=== PATIENT | male | born 1985 | race American Indian/Alaskan Native ===

== ENCOUNTER 2018-05-28 19:37 | Emergency (ER) | payer OTHER ==
--- NOTE | 2018-05-28 19:49 | Emergency Department Report ---
Blank Doc - Documentation Documentation: This is a 32-year-old male that presents with n/v and abdominal pain. This initial assessment/diagnostic orders/clinical plan/treatment(s) is/are subject to change based on patient's health status, clinical progression and re- assessment by fellow clinical providers in the ED. Further treatment and workup at subsequent clinical providers discretion. Patient/guardians urged not to elope from the ED as their condition may be serious if not clinically assessed and managed. Initial orders include: 1- Patient sent to [facility] for further evaluation and treatment 2- labs
[2018-05-28 20:13] LABS: Hematocrit 41.4 % (35.5-45.6); Hemoglobin 14.4 gm/dl (11.8-15.2); Mean Corpuscular HGB Conc 35 % (32-34); Mean Corpuscular Volume 89 fl (84-94); Platelet Count 285 K/mm3 (140-440); Red Blood Count 4.67 M/mm3 (3.65-5.03); Red Cell Distribution Width 13.8 % (13.2-15.2)
[2018-05-28 20:23] LABS: INR 1.02 (0.87-1.13)
[2018-05-28 20:24] LABS: Partial Thromboplastin Time 31.3 Sec. (24.2-36.6)
[2018-05-28 20:35] LABS: Alanine Aminotransferase 10 units/L (7-56); BUN/Creatinine Ratio 11; Blood Urea Nitrogen 11 mg/dL (9-20); Calcium 8.5 mg/dL (8.4-10.2); Hemolysis Index 8
--- NOTE | 2018-05-28 20:41 | Emergency Department Report ---
ED Abdominal Pain HPI - General Chief Complaint: GI Bleed Stated Complaint: ABDOMINAL PAIN Time Seen by Provider: 05/28/18 19:48 Source: patient Mode of arrival: Ambulatory Limitations: No Limitations - History of Present Illness Initial Comments: Patient is a 32-year-old male that presents emergency room with complaints of epigastric pain. Patient states he vomited blood times one. Patient states he's vomited 3 times but only saw him blood in his vomitus one time. Patient states he also had dark stool one time after taking Pepto-Bismol. Patient states the epigastric pain has resolved. Patient states it was severe but resolve on its own. Patient states all her symptoms were from this morning but due to the change in the color of his stool this afternoon he wants to be checked out. Patient denies pain at this time. Patient denies nausea at this time. Patient denies vomiting at this time. Patient denies diarrhea. Patient denies headache. Patient denies syncope. Patient denies dizziness. Patient denies weakness. MD Complaint: abdominal pain -: Sudden Location: epigastric Radiation: none Migration to: no migration Severity scale (0 -10): 0 Quality: burning Consistency: now resolved Improves With: rest Worsens With: eating, vomiting, movement Associated Symptoms: nausea, vomiting, hematemesis, melena. denies: diarrhea, fever, chills, constipation, dysuria, hematochezia, hematuria, anorexia, syncope - Related Data Previous Rx's Medication Instructions Recorded Last Taken Type Esomeprazole Magnesium [NexIUM] 40 mg PO QDAY 20 Days #20 05/28/18 Unknown Rx capsule. Allergies Allergy/AdvReac Type Severity Reaction Status Date / Time azithromycin AdvReac Shortness Verified 05/28/18 21:56 of Breath Penicillins AdvReac Shortness Verified 05/28/18 21:56 of Breath ED Review of Systems ROS: Stated complaint: ABDOMINAL PAIN Other details as noted in HPI Constitutional: denies: chills, fever Eyes: denies: eye pain, eye discharge, vision change ENT: denies: ear pain, throat pain Respiratory: denies: cough, shortness of breath, wheezing Cardiovascular: denies: chest pain, palpitations Endocrine: no symptoms reported Gastrointestinal: abdominal pain, nausea, vomiting, hematemesis, melena. denies: diarrhea, constipation, hematochezia Genitourinary: denies: urgency, dysuria Musculoskeletal: denies: back pain, joint swelling, arthralgia Skin: denies: rash, lesions Neurological: denies: headache, weakness, paresthesias Psychiatric: denies: anxiety, depression Hematological/Lymphatic: denies: easy bleeding, easy bruising ED Past Medical Hx - Past Medical History Previous Medical History?: Yes Hx Asthma: Yes - Surgical History Past Surgical History?: No - Family History Family history: no significant - Social History Smoking Status: Current Every Day Smoker Substance Use Type: None - Medications Home Medications: Home Medications Medication Instructions Recorded Confirmed Last Taken Type Esomeprazole Magnesium [NexIUM] 40 mg PO QDAY 20 Days #20 05/28/18 Unknown Rx capsule. ED Physical Exam - General Limitations: No Limitations General appearance: alert, in no apparent distress - Head Head exam: Present: atraumatic, normocephalic - Eye Eye exam: Present: normal appearance - ENT ENT exam: Present: mucous membranes moist - Neck Neck exam: Present: normal inspection - Respiratory Respiratory exam: Present: normal lung sounds bilaterally. Absent: respiratory distress - Cardiovascular Cardiovascular Exam: Present: regular rate, normal rhythm. Absent: systolic murmur, diastolic murmur, rubs, gallop - GI/Abdominal GI/Abdominal exam: Present: soft, normal bowel sounds. Absent: distended, tenderness, guarding, rebound - Rectal Rectal exam: Present: normal inspection, normal rectal tone, heme (-) stool - Extremities Exam Extremities exam: Present: normal inspection - Back Exam Back exam: Present: normal inspection - Neurological Exam Neurological exam: Present: alert, oriented X3 - Psychiatric Psychiatric exam: Present: normal affect, normal mood - Skin Skin exam: Present: warm, dry, intact, normal color. Absent: rash ED Course Vital Signs 05/28/18 05/28/18 05/28/18 19:48 20:21 20:35 Temperature 98.3 F 98.2 F Pulse Rate 67 61 Respiratory 16 18 17 Rate Blood Pressure 126/82 Blood Pressure 126/75 [Left] O2 Sat by Pulse 99 99 98 Oximetry 05/28/18 23:01 Temperature Pulse Rate 62 Respiratory 10 L Rate Blood Pressure Blood Pressure 131/91 [Left] O2 Sat by Pulse 100 Oximetry - Reevaluation(s) Reevaluation #1: Discussed all result patient. Patient is stable for discharge. Patient will be discharged home. Patient given discharge instructions. Patient given follow- up instructions. Patient voiced understanding of all instructions. Patient still not having abdominal pain. Patient denies having any nausea in the ER. Patient did not have any abdominal pain in the ER. 05/28/18 22:05 - Consultations Consultation #1: GI consult. Discussed case with GI. GI agrees that the patient is stable and can be discharged home with follow-up with GI as an outpatient. 05/28/18 21:56 ED Medical Decision Making - Lab Data Result diagrams: 05/28/18 19:59 05/28/18 19:59 - Medical Decision Making is a 32-year-old male that presents emergency with complaints of epigastric pain that has resolved prior to coming to the ER. Dark stool and vomiting blood 1. dark stools most likely secondary to the use of Pepto- Bismol. Patient had a rectal exam with Hemoccult done in the ER and was negative. Patient's labs are unremarkable. No anemia. Patient given discharge instructions. Discussed all results with patient. Patient agrees with plan of care and discharge. GI consult it and wants patient to follow up as an outpatient. Patient will be instructed to follow up with GI. Patient will be given Nexium prescription. While in the ER, the patient did not have any nausea, vomiting or abdominal pain. - Differential Diagnosis gastritis. Peptic ulcer disease. Melena. Medication reaction Critical care attestation.: If time is entered above; I have spent that time in minutes in the direct care of this critically ill patient, excluding procedure time. ED Disposition Clinical Impression: Dark stools Nausea & vomiting Qualifiers: Vomiting type: unspecified Vomiting Intractability: non-intractable Qualified Code(s): R11.2 - Nausea with vomiting, unspecified Gastritis Qualifiers: Gastritis type: unspecified gastritis Chronicity: acute Gastritis bleeding: with bleeding Qualified Code(s): K29.01 - Acute gastritis with bleeding Bloody vomitus Qualifiers: Nausea presence: with nausea Qualified Code(s): K92.0 - Hematemesis Medication reaction Qualifiers: Encounter type: initial encounter Qualified Code(s): T50.905A - Adverse effect of unspecified drugs, medicaments and biological substances, initial encounter Disposition: - TO HOME OR SELFCARE Is pt being admited?: No Does the pt Need Aspirin: No Condition: Stable Instructions: Bismuth Subsalicylate (By mouth), Gastritis (ED), Diet for Ulcers and Gastritis (ED) Additional Instructions: Patient follow up with primary care in 2-3 days. Patient to follow-up with gastro-N2 to 3 days. Patient to return to the ER condition worsens. Patient take meds as directed. Patient to increase water. Patient to avoid ibuprofen and spicy foods. Patient eat a GERD diet. Prescriptions: Esomeprazole Magnesium [NexIUM] 40 mg PO QDAY 20 Days #20 capsule.dr Referrals: [facility] [place] MD ALBINO [Primary Care Provider] - 2-3 Days LYNDSAY DAWSON MD [Staff Physician] - 2-3 Days Forms: Accompanied Note, Work/School Release Form(ED) Time of Disposition: 22:09
[2018-05-28 20:46] LABS: Bilirubin,Direct < 0.2 mg/dL (0-0.2)
[2018-05-28 20:49] LABS: Basophils % (Manual) 0 % (0.0-1.8); Total Cells Counted 100
[2018-05-28 20:50] LABS: RBC Morphology Normal
[2018-05-28] MEDS ORDERED: PROTONIX PO ONE (22:51)
[2018-05-28 23:02] VITALS: BP 131/91
== END 2018-05-28 23:02 | disposition home or self-care (01) ==
LOC: ED 19:37
DX: K29.01 Acute gastritis with bleeding (principal); T47.6X5A Adverse effect of antidiarrheal drugs, initial encounter; K92.1 Melena; K92.0 Hematemesis; J45.909 Unspecified asthma, uncomplicated; F17.200 Nicotine dependence, unspecified, uncomplicated; Y92.89 Other specified places as the place of occurrence of the external cause
CPT/HCPCS: 36415; 80048; 80076; 83690; 85007; 85025; 85610; 85730; 86850; 86900; 86901

== ENCOUNTER 2019-06-28 11:45 | Emergency (ER) | payer OTHER ==
[2019-06-28 11:52] VITALS: BP 141/94
--- NOTE | 2019-06-28 12:23 | Emergency Department Report ---
Chief Complaint: Dental/Oral Stated Complaint: LFT SIDE FACE PAIN Time Seen by Provider: 06/28/19 12:03 - HPI History of Present Illness: This 33-year-old male with no prior medical history presents the ED complaining of mild pain x2 to 3 days. Patient states that he was eating some shrimp 3 days ago when he asked that the bit the inside of his mouth. Patient states he is at some pain in that area since then. Patient states his been using mouthwash the past couple of days but has some pain in the inside of the mouth. Patient denies any bleeding, swelling, dental or gum swelling. He denies fever/chills/nausea vomiting or any other problems - ROS Review of Systems: As noted in HPI - Exam Vital Signs: Vital Signs 06/28/19 11:51 Temperature 98.6 F Pulse Rate 108 H Respiratory 12 Rate Blood Pressure 141/94 O2 Sat by Pulse 97 Oximetry Physical Exam: GENERAL: Alert and oriented x3, no apparent distress, Normal Gait, atraumatic. MOUTH:Mouth is well hydrated and without lesions. Tongue not elevated. Mucous membranes are moist. Tonsils nonerythematous or swollen, Uvula midline,Posterior pharynx clear, no exudate or lesions. Patent airways. SKIN: Warm and dry, No lesions, No ulceration or induration present. MSE screening note: Focused history and physical exam performed. Due to findings the following was ordered: ED Medical Decision Making - Medical Decision Making 33-year-old male presents with possible bite hector on the inside of his mouth causing pain. I discussed with patient this is not a medical emergency and may be followed up with a dentist. Dental referrals and resources given to patient. Patient is in no acute distress or respiratory distress. Patient understand instructions and states he will follow-up with a dentist. I discussed with the patient to continue using his mouthwash as needed to prevent infection otherwise follow-up with a dentist. ED Disposition for MSE Clinical Impression: Oral mucosal lesion Disposition: Z- MED SCREENING EXAM-LEFT Is pt being admited?: No Does the pt Need Aspirin: No Condition: Stable Instructions: Dental Caries (ED) Additional Instructions: Make sure to follow up with the dentist as discussed. If you have any worsening symptoms or develop new symptoms please return to ED i mmediately. Referrals: [facility] [Outside] - 3-5 Days [facility] [Outside] - 3-5 Days [facility] [Outside] - 3-5 Days Forms: Work/School Release Form(ED) Time of Disposition: 12:29
== END 2019-06-28 13:24 | disposition left against medical advice (07) ==
LOC: ED 11:45
DX: K13.70 Unspecified lesions of oral mucosa (principal)
CPT/HCPCS: 99281